=== PATIENT | female | born 1995 | race Hispanic/Latino ===

== ENCOUNTER 2019-02-06 22:54 | Emergency (ER) | payer OTHER ==
[~2019-02-06] VITALS: Ht 162.6 cm; Wt 99.0 kg
[~2019-02-06 22:54] MED LIST: AMOXICILLIN/CL875 MG PO; AMOXICILLIN500 MG PO; AMOXICILLIN875 MG PO; AUGMENTIN875TAB PO; BACTRIM DS1 TAB OR; CEPHALEXIN500 MG OR; CIPRODEX1 ML AS; CIPRODEX1 ML OT; CIPROFLOXACN500 MG PO; FERROUS SULF325 M2 PO; FLUTICASONE50 MCG; IBUPROFEN600 MG PO; LORTAB 7.5-3251 TAB PO; MEDDOSEPAK PO; NAPROSYN500 MG PO; NASONEX50 MCG/AC NAB; NO HOME MEDS; ONDANSETRON4 MG PO; PRILOSEC20 MG PO; PROAIR HFA IN; PYRIDIUM200 MG PO; SINGULAIR4 MG PO; TESSALON PER100 MG PO; ZITHROMAX250 MG OR; ZOFRAN ODT4 MG PO
[2019-02-06 23:46] LABS: URINE BILIRUBIN - DIPSTICK NEGATIVE (NEGATIVE); URINE BLOOD DIPSTICK NEGATIVE (NEGATIVE); URINE CLARITY TURBID; URINE COLOR YELLOW; URINE GLUCOSE - DIPSTICK NEGATIVE (NEGATIVE); URINE KETONE NEGATIVE (NEGATIVE); URINE LEUK ESTERASE NEGATIVE (Negative); URINE NITRITE - DIPSTICK NEGATIVE (Negative); URINE PH 6.5 (4.5-8.0); URINE PROTEIN - DIPSTICK NEGATIVE (NEG-TRACE); URINE SPECIFIC GRAVITY 1.025; URINE UROBILINOGEN - DIPSTICK 0.2 E.U./dL (0.2)
[2019-02-06 23:56] LABS: URINE BACTERIA FEW hpf; URINE MUCUS FEW hpf (NONE-FEW); URINE SQUAMOUS EPITHELIAL CELL MODERATE EPI/hpf (0-FEW)
[2019-02-07] MEDS ORDERED: MACROBID100 MG PO (00:03)
[2019-02-07] MEDS ORDERED: MACRODANTIN100 MG PO (00:03)
[2019-02-07] MEDS ORDERED: AMOXICILLIN500 MG PO (00:13)
[2019-02-07 00:15] VITALS: BP 146/80
== END 2019-02-07 00:15 | disposition home or self-care (01) ==
LOC: ED 22:54
PROVIDERS: Emergency Medicine
DX: O23.42 Unspecified infection of urinary tract in pregnancy, second trimester (principal); Z3A.15 15 weeks gestation of pregnancy; R30.0 Dysuria

== ENCOUNTER 2019-03-11 00:12 | Emergency (ER) | payer OTHER ==
[~2019-03-11] VITALS: Ht 162.6 cm; Wt 99.4 kg
[~2019-03-11 00:12] MED LIST changes: +MACROBID100 MG PO; +MACRODANTIN100 MG PO
[2019-03-11 01:07] VITALS: BP 125/70
== END 2019-03-11 01:00 | disposition home or self-care (01) ==
LOC: ED 00:12
DX: R23.3 Spontaneous ecchymoses (principal); T17.928A Food in respiratory tract, part unspecified causing other injury, initial encounter; R50.9 Fever, unspecified; X58.XXXA Exposure to other specified factors, initial encounter; Y92.009 Unspecified place in unspecified non-institutional (private) residence as the place of occurrence of the external cause

== ENCOUNTER 2019-07-19 00:21 | Emergency (ER) | payer OTHER ==
[~2019-07-19] VITALS: Ht 162.6 cm; Wt 100.0 kg
[2019-07-19 01:17] LABS: URINE BILIRUBIN - DIPSTICK NEGATIVE (NEGATIVE); URINE BLOOD DIPSTICK SMALL (NEGATIVE); URINE COLOR YELLOW; URINE GLUCOSE - DIPSTICK NEGATIVE (NEGATIVE); URINE KETONE NEGATIVE (NEGATIVE); URINE NITRITE - DIPSTICK NEGATIVE (Negative); URINE PROTEIN - DIPSTICK TRACE mg/dL (NEG-TRACE); URINE SPECIFIC GRAVITY >=1.030; URINE UROBILINOGEN - DIPSTICK 0.2 E.U./dL (0.2)
[2019-07-19 01:18] LABS: IMMATURE GRANULOCYTES 0.5 % (0.0-5.0); MEAN CORPUSCULAR HGB 24.4 pG CALC (26.0-32.0); MEAN CORPUSCULAR HGB CONC 30.9 g/L CALC (32.0-36.0); NEUT# 9.68 thou/uL (2.00-7.15); RED BLOOD COUNT 4.76 mill/uL (4.20-5.60); RED CELL DISTRI WIDTH 15.6 % (11.5-15.5)
[2019-07-19 01:29] LABS: HEMATOCRIT 37.5 % (37.0-47.0); HEMOGLOBIN 11.6 g/dl (12.0-16.0); MEAN CELL VOLUME 78.8 fL CALC (80.0-100.0)
[2019-07-19 01:29] LABS: URINE LEUK ESTERASE SMALL (NEGATIVE)
[2019-07-19 01:36] LABS: ALBUMIN 4.6 g/dL (3.2-5.0); ALKALINE PHOSPHATASE 136 u/l (38-126); ANION GAP 15 (6-22 (CALC)); BUN 9 mg/dL (7-17); BUN/CREATININE RATIO 13 (12-20 (CALC)); CARBON DIOXIDE 26 mmol/l (22-30); CHLORIDE 107 mmol/l (95-108); CREATININE 0.7 mg/dL (0.5-1.0); GFR > 60 ML/MIN (>=60 (CALC)); GFR FOR AFR.AMER. > 60 ML/MIN (>=60 (CALC)); POTASSIUM 4.3 mmol/l (3.5-5.1); SODIUM 144 mmol/l (137-146)
[2019-07-19 01:37] LABS: URINE SQUAMOUS EPITHELIAL CELL FEW EPI/hpf (0-FEW)
[2019-07-19 01:40] LABS: BILIRUBIN, TOTAL 0.3 mg/dL (0.0-1.4); SGOT/AST 31 u/l (14-36)
[2019-07-19] MEDS ORDERED: TRAMADOL HCL50 MG PO (03:17)
[2019-07-19 03:30] VITALS: BP 123/71
== END 2019-07-19 03:30 | disposition home or self-care (01) ==
LOC: ED 00:21
PROVIDERS: Family Medicine
DX: O90.89 Other complications of the puerperium, not elsewhere classified (principal); G89.18 Other acute postprocedural pain; R10.2 Pelvic and perineal pain
CPT/HCPCS: J0131

== ENCOUNTER 2022-05-07 20:18 | Emergency (ER) | payer OTHER ==
[~2022-05-07] VITALS: Ht 162.6 cm; Wt 109.0 kg
[~2022-05-07 20:18] MED LIST changes: +TRAMADOL HCL50 MG PO
[2022-05-07 20:57] VITALS: BP 129/73
[2022-05-07 21:11] LABS: HEMATOCRIT 33.2 % (37.0-47.0); HEMOGLOBIN 10.7 g/dl (12.0-16.0); IMMATURE GRANULOCYTES 0.3 % (0.0-5.0); MEAN CORPUSCULAR HGB 27.2 pG CALC (26.0-32.0); MEAN CORPUSCULAR HGB CONC 32.2 g/dL CAL (32.0-36.0); NEUT# 5.57 thou/uL (2.00-7.15); RED BLOOD COUNT 3.93 mill/uL (4.20-5.60); RED CELL DISTRI WIDTH 13.2 % (11.5-15.5)
[2022-05-07 21:13] LABS: MEAN CELL VOLUME 84.5 fL CALC (80.0-100.0)
[2022-05-07] MEDS ORDERED: ACETAMINOP160 MG/5 M PO (21:17)
[2022-05-07] MEDS ORDERED: MULTI VIT PO (21:17)
[2022-05-07 21:25] VITALS: BP 138/87
[2022-05-07 22:00] VITALS: BP 130/79
[2022-05-07] MEDS ORDERED: PROVERA10 MG PO (22:17)
[2022-05-07 22:30] VITALS: BP 122/73
[2022-05-07 22:45] VITALS: BP 122/73
== END 2022-05-07 22:57 | disposition home or self-care (01) ==
LOC: ED 20:18
PROVIDERS: Family Medicine
DX: N93.9 Abnormal uterine and vaginal bleeding, unspecified (principal)

== ENCOUNTER 2022-08-22 08:39 | Emergency (ER) | payer OTHER ==
[~2022-08-22] VITALS: Ht 162.6 cm; Wt 114.0 kg
[~2022-08-22 08:39] MED LIST changes: +ACETAMINOP160 MG/5 M PO; +MULTI VIT PO; +PROVERA10 MG PO
[2022-08-22 08:43] VITALS: BP 132/79
[2022-08-22 09:00] VITALS: BP 133/90
[2022-08-22 09:31] VITALS: BP 111/68
[2022-08-22 09:49] VITALS: BP 111/68
== END 2022-08-22 09:50 | disposition home or self-care (01) ==
LOC: ED 08:39
DX: M25.571 Pain in right ankle and joints of right foot (principal)

== ENCOUNTER 2022-11-15 16:11 | Emergency (ER) | payer OTHER ==
[~2022-11-15] VITALS: Ht 162.6 cm; Wt 100.0 kg
[2022-11-15 16:17] VITALS: BP 140/83
[2022-11-15 16:30] VITALS: BP 127/74
[2022-11-15 17:35] VITALS: BP 129/72
[2022-11-15 17:45] VITALS: BP 123/70
[2022-11-15 18:00] VITALS: BP 120/70
[2022-11-15] MEDS ORDERED: IBUPROFEN600 MG PO (18:07)
[2022-11-15] MEDS ORDERED: PREDNISONE50 MG PO (18:07)
[2022-11-15] MEDS ORDERED: FLEXERIL5 M1 PO (18:07)
[2022-11-15 18:15] VITALS: BP 114/65
== END 2022-11-15 18:45 | disposition home or self-care (01) ==
LOC: ED 16:11
DX: M54.41 Lumbago with sciatica, right side (principal); N93.9 Abnormal uterine and vaginal bleeding, unspecified

== ENCOUNTER 2023-08-06 07:47 | Emergency (ER) | payer OTHER ==
[2023-08-06] VITALS (9 sets, daily range): BP systolic 116–136; BP diastolic 66–83
[~2023-08-06] VITALS: Ht 162.6 cm; Wt 102.4 kg
[~2023-08-06 07:47] MED LIST changes: +FLEXERIL5 M1 PO; +PREDNISONE50 MG PO
[2023-08-06 09:10] LABS: ALBUMIN 3.9 g/dL (3.2-5.0); ALKALINE PHOSPHATASE 101 u/l (38-126); ANION GAP 10 (6-22 (CALC)); BILIRUBIN, TOTAL 0.3 mg/dL (0.02-1.3); BUN 9 mg/dL (7-17); BUN/CREATININE RATIO 13 (12-20 (CALC)); CARBON DIOXIDE 27 mmol/l (22-30); CHLORIDE 107 mmol/l (95-108); CREATININE 0.7 mg/dL (0.5-1.0); GFR FOR AFR.AMER. > 60 ML/MIN (>=60 (CALC)); GFR OTHER RACES > 60 ML/MIN (>=60 (CALC)); POTASSIUM 4.2 mmol/l (3.5-5.1); SGOT/AST 27 u/l (14-36); SODIUM 139 mmol/l (137-146); TOTAL PROTEIN 7.5 g/dL (6.3-8.2)
== END 2023-08-06 10:50 | disposition left against medical advice (07) ==
LOC: ED 07:47
PROVIDERS: Family Medicine
DX: J36 Peritonsillar abscess (principal); Z53.29 Procedure and treatment not carried out because of patient's decision for other reasons; Z20.822 Contact with and (suspected) exposure to COVID-19
CPT/HCPCS: Q9967